=== PATIENT | male | born 1985 | race Caucasian/White ===

== ENCOUNTER 2019-08-31 13:44 | Observation (INO) | payer MEDICAID ==
--- NOTE | 2019-08-31 14:01 | ED ---
GI/ HPI - HPI Summary HPI Summary: 34 year old M presenting to [facility] with a chief complaint of abdominal distension which has slowly accumulated since 2 weeks ago. Patient reports shortness of breath and some abdominal pain. He rates the pain 4/10 in severity. Symptoms aggravated by nothing. Symptoms alleviated by nothing. The patient thinks that he may need a paracentesis, which he last had two weeks ago. Patient denies any fever, chills, erythema of eyes, sore throat, chest pain , cough, nausea/vomiting, dysuria, hematuria, myalgia, edema, rash, or dizziness. Medication list reviewed. Allergy list reviewed. - History of Current Complaint Chief Complaint: EDAbdPain Time Seen by Provider: 08/31/19 13:53 Stated Complaint: BLOATED Hx Obtained From: Patient Onset/Duration: Still Present Timing: Constant Current Severity: Moderate Pain Intensity: 4 Associated Signs and Symptoms: Positive: Negative - Erythema (eyes), sore throat , myalgia, edema, rash, Abdominal Pain, Other: - Shortness of breath. Negative : Dizziness, Nausea, Vomiting, Fever, Hematuria, Dysuria, Chills, Cough, Chest Pain Aggravating Factor(s): Nothing Alleviating Factor(s): Nothing - Allergy/Home Medications Allergies/Adverse Reactions: Allergies Allergy/AdvReac Type Severity Reaction Status Date / Time No Known Allergies Allergy Verified 08/16/19 10:40 Home Medications: Home Medications Capecitabine 500 mg TAB (NF) [Xeloda 500 mg TAB (NF)] 1,500 mg PO BID 08/15/19 [ History Confirmed 08/31/19] Furosemide TAB* [Lasix TAB*] 20 mg PO DAILY 08/15/19 [History Confirmed 08/31/19 ] Milk Thistle Seed Extract [Milk Thistle] 250 mg PO DAILY 08/15/19 [History Confirmed 08/31/19] Spironolactone (NF) [Spironolactone 50 MG (NF)] 50 mg PO DAILY 08/15/19 [ History Confirmed 08/31/19] Super Selenium Complex 1 tab PO DAILY 08/15/19 [History Confirmed 08/31/19] Vitamin D3/Vitamin K2 (Mk4) [K2 Plus D3 100-1000 Mcg-Unit] 1 tab PO DAILY [History Confirmed 08/31/19] celeCOXIB CAP* [CeleBREX CAP*] 100 mg PO BID 08/15/19 [History Confirmed ] hydrOXYzine HCL TAB* [Atarax TAB 50 MG *] 50 - 100 mg PO BEDTIME PRN 08/15/19 [ History Confirmed 08/31/19] metFORMIN* [Glucophage 500 MG TAB *] 500 mg PO BID 08/15/19 [History Confirmed 08/31/19] ursodioL [Ursodiol] 250 mg PO BID 08/15/19 [History Confirmed 08/31/19] PMH/Surg Hx/FS Hx/Imm Hx Endocrine/Hematology History: Denies: Hx Diabetes Cardiovascular History: Denies: Hx Hypertension History: Denies: Hx Renal Disease Sensory History: Denies: Hx Deafness - Cancer History Cancer Type, Location and Year: Colon - Surgical History Surgical History: None Infectious Disease History: No Infectious Disease History: Denies: Traveled Outside the [place] in Last 30 Days - Family History Known Family History: Negative: Hypertension - Social History Alcohol Use: None Substance Use Type: Reports: None Hx Tobacco Use: No Smoking Status (MU): Never Smoked Tobacco Review of Systems Negative: Fever, Chills Negative: Erythema Negative: Sore Throat Negative: Chest Pain Positive: Shortness Of Breath. Negative: Cough Positive: Abdominal Pain, Other - Abdominal distension. Negative: Vomiting, Nausea Negative: dysuria, hematuria Negative: Myalgia, Edema Negative: Rash Neurological/Mental Status: Negative - Dizziness All Other Systems Reviewed And Are Negative: Yes Physical Exam - Summary Physical Exam Summary: Constitutional: Well-developed, Well-nourished, Alert. (-) Distressed Skin: Warm, Dry HENT: Normocephalic; Atraumatic Eyes: Conjunctiva normal Neck: Musculoskeletal ROM normal neck. (-) JVD, (-) Stridor, (-) Tracheal deviation Cardio: Rhythm regular, rate normal, Heart sounds normal; Intact distal pulses; The pedal pulses are 2+ and symmetric. Radial pulses are 2+ and symmetric. (-) Murmur Pulmonary/Chest wall: Effort normal. (-) Respiratory distress, (-) Wheezes, (-) Rales, diminished breath sounds Abd: Significant abdominal ascites, (-) Guarding, (-) Rebound Musculoskeletal: (-) Edema Lymph: (-) Cervical adenopathy Neuro: Alert, Oriented x3 Psych: Mood and affect Normal Triage Information Reviewed: Yes Vital Signs On Initial Exam: Initial Vitals Temp Pulse Resp BP Pulse Ox 98.1 F 141 20 125/93 96 08/31/19 13:45 08/31/19 13:45 08/31/19 13:45 08/31/19 13:45 08/31/19 13:45 Vital Signs Reviewed: Yes Procedures - Sedation Patient Received Moderate/Deep Sedation with Procedure: No Diagnostics - Vital Signs Vital Signs Temp Pulse Resp BP Pulse Ox 08/31/19 13:45 98.1 F 141 20 125/93 96 - Laboratory Result Diagrams: 08/31/19 14:42 08/31/19 14:42 Lab Statement: Any lab studies that have been ordered have been reviewed, and results considered in the medical decision making process. - Radiology Chest x-ray Radiology Interpretation Completed By: Radiologist Summary of Radiographic Findings: 1. Hypoinflated lungs with no acute cardiopulmonary process. 2. Generalized increased opacification of the abdomen with paucity of bowel gas. ED physician has reviewed this report. - CT Abdomen/Pelvis CT CT Interpretation Completed By: Radiologist Summary of CT Findings: 1. INCREASED LARGE VOLUME ASCITES. 2. HEPATOMEGALY WITH SEVERAL METASTATIC LESIONS. 3. SIMILAR ABDOMINAL/PELVIC LYMPHADENOPATHY ABOVE. 4. BIBASILAR PULMONARY NODULARITY CONCERNING FOR METASTASES. 5. SPLENOMEGALY. 6. CHOLELITHIASIS. ED physician has reviewed this report. - EKG 14:28 Cardiac Rate: Tachycardia - 119 BPM EKG Rhythm: Sinus Tachycardia Summary of EKG Findings: No STEMI. ED physician has reviewed and interpreted this EKG. GIGU Course/Dx - Course Course Of Treatment: 34 year old M presenting to [facility] with a chief complaint of abdominal distension which has slowly accumulated since 2 weeks ago. Patient reports shortness of breath and some abdominal pain. Physical exam findings: diminished breath sounds, significant abdominal ascites. An EKG reveals sinus tachycardia rate of 119 BPM, no STEMI. CXR reveals, per radiologist, 1. Hypoinflated lungs with no acute cardiopulmonary process. 2. Generalized increased opacification of the abdomen with paucity of bowel gas. Abdomen/ Pelvis CT reveals, per radiologist, 1. INCREASED LARGE VOLUME ASCITES 2. HEPATOMEGALY WITH SEVERAL METASTATIC LESIONS. 3. SIMILAR ABDOMINAL/PELVIC LYMPHADENOPATHY ABOVE. 4. BIBASILAR PULMONARY NODULARITY CONCERNING FOR METASTASES. 5. SPLENOMEGALY. 6. CHOLELITHIASIS. Laboratory results with no significant abnormalities except for a WBC of 15.1, RBC of 3.38, Hgb of 12.4, Hct of 36, MCV of 107, MCH of 37, RDW of 26, MPV of 7.3, absolute neuts of 13.0 , absolute lymphs of 0.9, absolute monos of 1.1, Sodium of 130, carbon dioxide of 17, anion gap of 12, BUN/creatinine ratio of 29.6, glucose of 114, lactic acid of 3.1, total bilirubin of 2.50, AST of 66, alkaline phosphatase of 186, albumin of 3.1, globulin of 4.1, albumin/globulin ratio of 0.8, INR of 1.42, urine protein of 1+ A, urine urobilinogen positive A, hyaline casts present A, and C-reactive protein of 128.65. In the ED course, the patient was given Duonebs, normal saline, and Rocephin. We discussed patient care with Dr. Branch at 15:[address] Patient will be admitted. The patient is agreeable with this plan. - Diagnoses Provider Diagnoses: Spontaneous bacterial peritonitis, Malignant ascites, Sepsis - Physician Notifications Discussed Care Of Patient With: Sulma Branch Time Discussed With Above Provider: 15:37 Instructed by Provider To: Other - Discussed with Dr. Branch who requests a CT. - Critical Care Time Critical Care Time: 30-74 min - 60 minutes Critical Care Statement: Critical care time is provided exclusive of any time spent performing procedures. Discharge ED - Sign-Out/Discharge Documenting (check all that apply): Patient Departure - Discharge Plan Condition: Stable Disposition: ADMITTED TO [facility] Referrals: Ryan Nam MD [Primary Care Provider] - - Attestation Statements Document Initiated by Scribe: Yes Documenting Scribe: Nilam Hernandez Provider For Whom Scribe is Documenting (Include Credential): Jose Dailey MD Scribe Attestation: Nilam Mauricio, scribed for Jose Dailey MD on 08/31/19 at [id number]. Status of Scribe Document: Ready
[2019-08-31] MEDS ORDERED: Albuterol/Ipratropium NEB.SOL* (2.5/0.5 MG) 3 ML NEB.SOLN INH ONE (14:02)
[2019-08-31] MEDS ORDERED: NS 0.9% 1000 ML** 1,000 ML IV ONE ×2 (14:07→15:04)
[2019-08-31 14:54] LABS: ABS Basophils 0.1 10^3/ul (0-0.2); ABS Lymphocytes 0.9 10^3/ul (1.0-4.8); ABS Monocytes 1.1 10^3/ul (0-0.8); Eosinophil % 0.2 %; Hematocrit 36 % (42-52); Hemoglobin 12.4 g/dL (14.0-18.0); Lymphocyte % 5.7 %; Mean Corpuscular HGB Conc 34 g/dL (31-36); Mean Corpuscular Hemoglobin 37 pg (27-31); Mean Corpuscular Volume 107 fL (80-94); Mean Platelet Volume 7.3 fL (7.4-10.4); Nucleated Red Blood Cells % 0.1; Platelet Count 249 10^3/uL (150-450); Red Blood Count 3.38 10^6 /uL (4.18-5.48); Red Cell Distribution Width 26 % (10-15); White Blood Count 15.1 10^3/uL (3.5-10.8)
[2019-08-31 14:58] LABS: INR 1.42 (0.82-1.09)
[2019-08-31] MEDS ORDERED: Albuterol/Ipratropium NEB.SOL* (2.5/0.5 MG) 3 ML NEB.SOLN INH SCH (15:00)
[2019-08-31] MEDS ORDERED: cefTRIAXone(*) 1 GM in NS 0.9% 50 ML* 50 ML IVPB ONE (15:04)
[2019-08-31 15:10] LABS: Albumin 3.1 g/dL (3.2-5.2); Albumin/Globulin Ratio 0.8 (1-3); BUN/Creatinine Ratio 29.6 (8-20); Calcium 9.1 mg/dL (8.6-10.3); EGFR Non-African American 109.1 (>60); Globulin 4.1 g/dL (2-4); Potassium 4.4 mmol/L (3.5-5.0); Total Bilirubin 2.5 mg/dL (0.2-1.0); Total Protein 7.2 g/dL (6.4-8.9)
[2019-08-31] MEDS ORDERED: NS 0.9% 500 ML* 500 ML IV ONE (15:32)
[2019-08-31] MEDS ORDERED: Iodixanol* (CONTRAST) 320 MG/ML 100 ML SDV IV ONE (16:07)
[2019-08-31 16:25] LABS: Urine Appearance Clear; Urine Bilirubin Negative (Negative); Urine Blood Negative (Negative); Urine Color Amber; Urine Glucose Negative (Negative); Urine Ketones Negative (Negative); Urine Nitrite Negative (Negative); Urine Protein 1+(30 mg/dL) (Negative); Urine Specific Gravity 1.024 (1.010-1.030); Urine Urobilinogen Positive (Negative)
[2019-08-31 16:30] LABS: C Reactive Protein 128.65 mg/L (<8.01)
[2019-08-31 16:43] LABS: Urine Bacteria Absent (Absent); Urine Red Blood Cell Trace(0-2/hpf) (Absent); Urine White Blood Cell Absent (Absent)
[2019-08-31 17:22] LABS: Body Fluid Source Peritonial Fluid
[2019-08-31 18:24] LABS: Body Fluid Mono 80 %; Body Fluid Other Cells 2
[2019-08-31] MEDS ORDERED: hydrOXYzine HCL TAB* 50 MG PO PRN (19:25)
[2019-08-31] MEDS: URSODIOL 250 MG PO SCH (21:09)
--- NOTE | 2019-08-31 21:09 | HP ---
HISTORY AND PHYSICAL: DATE OF ADMISSION: 08/31/19 ATTENDING PHYSICIAN: Dr. Dee Dee Kimble* (dictated by Alexia Chu, MATHEW). PRIMARY CARE DOCTOR: Dr. Ryan Nam. REASON FOR ADMISSION: Abdominal distention, shortness of breath, and fatigue. HISTORY OF PRESENT ILLNESS: Mr. Ca is a 34-year-old male with a past medical history significant for colon cancer with metastatic disease to the liver, who came here from [facility] from [place] approximately 5 weeks ago to live with his girlfriend's father. The patient reports that he is on chemo 2 weeks on, 1 week off. He reports that this is his off week. He reports that he has tried experimental treatments in [place] as well. Reports that he is currently taking Chemo to maintain the lesions in his abdomen. He reports that approximately 3 weeks ago, he started having abdominal distention. Two weeks ago, he had a paracentesis and had 4 L drained. He reports that his abdomen was more distended today causing him to be uncomfortable with abdominal tightness, mild pain, causing shortness of breath, so he presented to the emergency room for further evaluation. While in the emergency room, the patient had a routine lab work. He was found to have mildly elevated white count of 15.1; a lactic acid of 3.1, repeat was 2.4; elevated bilirubin 2.50. AST was 66, ALT was 24, alkaline phosphatase was 186, C- reactive protein was 128.65. He had a urine that showed 1+ protein. Urobilinogen was positive and casts were present, otherwise was negative. He had a paracentesis which showed wbc's were 140, rbc's 608, total cell count was 100, yellow and clear. Due to the patient's abdominal distention, Hospital Medicine was asked to see and evaluate him for admission. PAST MEDICAL HISTORY: Significant for metastatic colon cancer. PAST SURGICAL HISTORY: None. HOME MEDICATIONS: Include: 1. Ursodiol 250 mg p.o. b.i.d. 2. Hydroxyzine 50 to 100 mg p.o. at bedtime. 3. Celebrex 100 mg p.o. b.i.d. 4. Vitamin D3 and vitamin K2 one tab p.o. daily. 5. Super selenium complex 1 tab p.o. daily. 6. spironolactone 50 mg p.o. daily. 7. Milk thistle seed 250 mg p.o. daily. 8. Furosemide 20 mg p.o. daily. 9. Capecitabine 1500 mg p.o. b.i.d. 2 weeks on, 1 week off. ALLERGIES: No known drug allergies. FAMILY HISTORY: Maternal grandfather with a history of an [place]. No reported history of diabetes or cancer. SOCIAL HISTORY: Denies any tobacco, alcohol, or illicit drug use for over a year. He lives with his girlfriend. Surrogate decision maker in the event he is unable to make his own decisions is his girlfriend Pastora Ross. REVIEW OF SYSTEMS: He denies any fevers, chills, unintended weight loss. He denies any chest pain. He denies any cough, hemoptysis. He does report some shortness of breath that has resolved after his paracentesis. He denies any nausea, vomiting, diarrhea. He does complain of abdominal distention and mild right mid abdominal pain. Denies any gross hematuria, dysuria, focal weakness, sensory loss, visual complaints. Denies any dysphagia, arthralgias, myalgias, rashes, lesions, open sores. He denies any lightheadedness or dizziness. He does complain of fatigue. PHYSICAL EXAMINATION GENERAL: Mr. Ca is a 34-year-old male who is pale, resting on the stretcher in the emergency room. VITAL SIGNS: Blood pressure 125/89, heart rate 106, respirations were 18 to 22 , O2 saturation was 99% on room air, temperature was 98.1. HEENT: Head is atraumatic, normocephalic. Eyes: EOMs are intact. Sclerae anicteric. Conjunctivae are pale. Mucous membranes are moist. NECK: Supple. LUNGS: Clear to auscultation bilaterally. No wheezes, rales, or rhonchi. CARDIAC: S1, S2. Tachycardic. No murmurs, rubs, or gallops. ABDOMEN: Soft. Does have mild tenderness to his right abdomen. Bowel sounds are active x4. He does have a Band-Aid on his paracentesis puncture site. There is no drainage. NEUROLOGIC: He is awake, alert, oriented x3. Speech is clear. Thought process is intact. There are no gross focal deficits. SKIN: Intact. DIAGNOSTIC STUDIES/LAB DATA: WBCs are 15.1, RBCs 3.38, hemoglobin 12.4, hematocrit is 36, platelet count is 249. INR 1.42. Sodium 130, potassium 4.0, chloride 101, carbon dioxide was 17, anion gap of 12, glucose was 114, lactic acid was 3.1 and repeat was 2.4. Total bilirubin 2.50, AST was 66, ALT was 24, alkaline phosphatase was 186. C-reactive protein was 128.65. Urine was within normal limits with the exception of urine protein with 1+ urine, urobilinogen was positive and hyaline casts were present. He had peritoneal fluid, volume was 60, color was yellow, appearance was clear, wbc's were 140, rbc's 608, total cell count was 100, neutrophils were 9, lymphocytes were 11, monocytes were 80, and other cells were 2. He had a chest x-ray, radiologist's impression: 1. Hypoinflated lungs with no acute cardiopulmonary process. 2. Generalized increased opacification of the abdomen with patchy bowel gas. He had electrocardiogram which showed sinus tachycardia at a rate of 119. He had a CT of the abdomen and pelvis, increased large volume of ascites, hepatomegaly with several metastatic lesions, similar abdominal and pelvis lymphadenopathy as above, bibasilar pulmonary nodularity concerning for metastatic disease, splenomegaly, and cholelithiasis. He had a paracentesis and drained 8 L of fluid. ASSESSMENT AND PLAN: Mr. Ca is a 34-year-old male with a past medical history of metastatic colon cancer, who presented to the emergency room with abdominal distention, needing paracentesis. He will be admitted under observation for: 1. Abdominal pain. I suspect his abdominal pain is related to large volume of ascites. The patient did undergo a paracentesis in the emergency room where they drained 8 L of fluid. He did have fluid sent for cell count, which showed wbc's of 140. At this time, the patient does not appear to have bacterial peritonitis. He is afebrile. I suspect that the recurrent ascites is from his metastatic colon cancer with metastatic disease to the liver. The patient at this time has received 2500 cc of normal saline in the emergency room. I am going to hold off on further fluid bolusing. I will give him normal saline at 100 cc an hour x1 more liter overnight. 2. Leukocytosis. The patient does have leukocytosis and elevated CRP. He has no clear source of infection at this time. He did receive Rocephin 1 g in the emergency room. I am going to hold off on further antibiotics at this time as the patient does not have a clear source of infection. His chest x-ray did show no pneumonia. His urine is without any signs of urinary tract infection and his peritoneal fluid did not return high levels of wbc's. We will continue to monitor him for signs of infection. He does have blood cultures that are currently pending and a urine culture that is currently pending. Should he develop a fever we will resume broad coverage antibiotics at that time. 3. Metastatic colon cancer. The patient is not established with Oncology here in [place]. He has an oncologist in [place]. He moved here approximately 5 weeks ago and it is unclear of his plan whether or not he will be returning to [place] or staying in [place]. I would recommend a consultation to Oncology for further recommendations. 4. Hyponatremia. The patient did have hyponatremia on his initial lab work. appears to be baseline since 08/15/19. We will continue to monitor and again, the patient received 2500 cc of normal saline in the emergency room. I will continue him on Normal saline at 100 cc/hr overnight. 5. Elevated lactic acid. The patient does have an elevated lactic acid. I do not believe that this is related to sepsis or underlying infection as the patient has no clear source of underlying infection. 6. Tachycardia. The patient is tachycardic, he appears to have chronic tachycardia when previous admissions were reviewed, susect some of this could be a component dehydration. 7. FEN: He can have a regular diet. 8. Code status: He is a full code. 9. DVT prophylaxis: I will place him on SCDs. ALEXIA ADRIANA, PRE [employer] TE[employer]ER [id number]/[facility] #: [id number] AMISH
[2019-08-31] MEDS ORDERED: NS 0.9% 1000 ML** 1,000 ML IV SCH (21:45)
[2019-09-01 07:37] LABS: ABS Basophils 0.1 10^3/ul (0-0.2); ABS Lymphocytes 1.2 10^3/ul (1.0-4.8); ABS Monocytes 1.2 10^3/ul (0-0.8); ABS Neutrophils 12.4 10^3/ul (1.5-7.7); Eosinophil % 0.3 %; Hematocrit 36 % (42-52); Hemoglobin 12.3 g/dL (14.0-18.0); Mean Corpuscular HGB Conc 35 g/dL (31-36); Mean Corpuscular Hemoglobin 37 pg (27-31); Mean Corpuscular Volume 107 fL (80-94); Mean Platelet Volume 7.7 fL (7.4-10.4); Nucleated Red Blood Cells % 0.1; Platelet Count 219 10^3/uL (150-450); Red Blood Count 3.34 10^6 /uL (4.18-5.48); Red Cell Distribution Width 26 % (10-15); White Blood Count 14.9 10^3/uL (3.5-10.8)
[2019-09-01 07:40] LABS: INR 1.47 (0.82-1.09)
[2019-09-01 07:48] LABS: Calcium 8.2 mg/dL (8.6-10.3); EGFR African American 146.5 (>60); EGFR Non-African American 121.1 (>60); Potassium 4.6 mmol/L (3.5-5.0)
[2019-09-01 08:01] VITALS: BP 114/83
[2019-09-01] MEDS: URSODIOL 250 MG PO SCH (08:12)
--- NOTE | 2019-09-01 08:59 | PN ---
Subjective Date of Service: 09/01/19 Interval History: Pt was dx with advanced metastatic colon ca in . He saw an oncologist in [facility] who told him that there are not good options for cure and pt decided not to follow with oncology since then . He had been traveling to [place] and back ( in 2018 was there 3 times) and receiving infusions of further unknown to pt chemo agent. He was started on Xeloda n 05/30 and his PCP in [facility] is prescribing it under the direction of the practitioners from [facility] Objective Active Medications: Furosemide (Lasix Tab*) 20 mg PO DAILY [facility] Last Admin: 09/01/19 08:12 Dose: 20 mg Hydroxyzine HCl (Atarax Tab*) 50 mg PO BEDTIME PRN PRN Reason: ANXIETY Last Admin: 08/31/19 23:54 Dose: 50 mg Spironolactone (Aldactone Tab*) 50 mg PO DAILY [facility] Last Admin: 09/01/19 08:12 Dose: 50 mg Ursodiol (Catherine 250(Nf)) 250 mg PO BID [facility] Last Admin: 09/01/19 08:12 Dose: Not Given Vital Signs - 8 hr 09/01/19 09/01/19 03:15 07:15 Temperature 97.9 F 97.9 F Pulse Rate 110 112 Respiratory 18 18 Rate Blood Pressure 104/76 114/83 (mmHg) O2 Sat by Pulse 98 99 Oximetry Oxygen Devices in Use Now: None Appearance: 34 yo M in n[place], AAOx3, pt appears very emanciated Eyes: No Scleral Icterus, PERRLA Ears/Nose/Mouth/Throat: Mucous Membranes Moist, - Neck: NL Appearance and Movements; NL JVP, Trachea Midline Respiratory: Symmetrical Chest Expansion and Respiratory Effort, - - scant binbasiliar crackles Cardiovascular: - - tachy Abdominal: - - dense ascites, nontender , BS+ Extremities: No Edema, - Neurological: Alert and Oriented x 3, NL Muscle Strength and Tone Result Diagrams: 09/01/19 06:23 09/01/19 06:23 Microbiology and Other Data: Microbiology 08/31/19 16:45 Gram Stain - Final Body Fluid - Peritoneal Assess/Plan/Problems-Billing Assessment: 34 yo M with h/o metastatic colon cancer and progressive liver failure due to mets presented with SOB and significant ascites. had 8 L of fluid obtained from paracentesis on 08/31/19 please see the reminder of pt's history in d/c summary dictated
[2019-09-01] MEDS ORDERED: Spironolactone TAB* 25 MG PO SCH (09:00)
[2019-09-01] MEDS ORDERED: Furosemide TAB* 20 MG PO SCH (09:00)
--- NOTE | 2019-09-01 09:16 | CONSULT ---
Consultation - Reason for Consultation Reason for Consultation: Metastatic Colorectal cancer Ordering Provider: Sulma Branch Chief Complaint: Abdominal pain and distension History of Present Illness: Mr Ca is a 34 year old gentleman originally from [place], currently residing in [facility] . He has recently travelled to [place] to be closer to family. 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 He tells me the diagnosis was made after biopsy of a supraclavicular node. He was seen at [facility] and every 2 week chemothertapy was recommended. He decided not to pursue this and travelled to [facility] to be seen at the [facility]. He was treated primarily by DR Lopez. The [facility] has been managing his care since returning back to the [facility]. He initiated Xeloda 2 weeks on 1 week off in May of 2019. He is now admitted with recurrent ascites, abdominal distension and has undergone a paracentesis of 8 liters, cultures and gram stain negative. WBC 14.8 Hg 12 platelets 219 creatinine 0.74 bilirubim 2.5 AST 65 ALT 261, alk phos 186 CT abdomen bilateral basilar pulmonary nodules, enlarged liver with hepatic metastases, RP nodes and splenomegaly Allergies/Medications Allergies/Adverse Reactions: Allergies Allergy/AdvReac Type Severity Reaction Status Date / Time No Known Allergies Allergy Verified 08/16/19 10:40 History - Past Medical History Hx Arthritis: No Hx Blood Dyscrasias: No Hx Cancer: Yes Hx Cardiac Disorders: No Hx Circulatory Problems: No Hx Diabetes: No Hx Hypercholesterolemia: No Hx Hypertension: No Hx Musculoskeletal Deformity: No Surgical History: None Hx Endocrine Problem: No Hx Bone Density Problem: No - Family History Hx Family Cancer: No Hx Family Cerebrovascular Accident: No Hx Family Cardiac Disorders: No Hx Family Diabetes: No Hx Family Hypertension: No - Social History Hx Alcohol Use: No Hx Tobacco Use: No Hx Substance Use: No Review of Systems - Review of Systems Constitutional Symptoms: Positive: Weight Loss Dermatology: Positive: Normal HEENT: Positive: Normal Eyes: Positive: Normal Thyroid: Positive: Normal Pulmonary: Positive: Shortness of Breath Cardiology: Positive: Normal Gastroenterology: Positive: Abdominal Pain Genital - Urinary: Positive: Normal Endocrinology: Positive: Normal Neurology: Positive: Normal Psychiatry: Positive: Normal Physical Exam - Physical Exam Physical Examination: Alert and conversant meck supple Cachectic with temporal wasting Abdomen distended NOT tense, ascites present, minimal tenderness to palpation Extremities with muscle wasting Neuro grossly non focal Vital Signs - 8 hr 09/01/19 09/01/19 03:15 07:15 Temperature 97.9 F 97.9 F Pulse Rate 110 112 Respiratory 18 18 Rate Blood Pressure 104/76 114/83 (mmHg) O2 Sat by Pulse 98 99 Oximetry Laboratory Results - last 24 hr 08/31/19 08/31/19 08/31/19 14:42 14:42 14:42 WBC 15.1 H RBC 3.38 L Hgb 12.4 L Hct 36 L MCV 107 H MCH 37 H MCHC 34 RDW 26 H Plt Count 249 MPV 7.3 L Neut % (Auto) 86.3 Lymph % (Auto) 5.7 [place] % (Auto) 7.2 Eos % (Auto) 0.2 Baso % (Auto) 0.6 Absolute Neuts (auto) 13.0 H Absolute Lymphs (auto) 0.9 L Absolute Monos (auto) 1.1 H Absolute Eos (auto) 0.0 Absolute Basos (auto) 0.1 Absolute Nucleated RBC 0.0 Nucleated RBC % 0.1 INR (Anticoag Therapy) 1.42 H Sodium 130 L Potassium 4.4 Chloride 101 Carbon Dioxide 17 L Anion Gap 12 H BUN 24 Creatinine 0.81 Est GFR ( Amer) 132.0 Est GFR (Non-Af Amer) 109.1 BUN/Creatinine Ratio 29.6 H Glucose 114 H Lactic Acid Calcium 9.1 Total Bilirubin 2.50 H AST 66 H ALT 24 Alkaline Phosphatase 186 H C-Reactive Protein 128.65 H Total Protein 7.2 Albumin 3.1 L Globulin 4.1 H Albumin/Globulin Ratio 0.8 L Urine Color Urine Appearance Urine pH Ur Specific [place] Urine Protein Urine Ketones Urine Blood Urine Nitrate Urine Bilirubin Urine Urobilinogen Ur Leukocyte Esterase Urine WBC (Auto) Urine RBC (Auto) Urine Bacteria Hyaline Casts Urine Glucose Urine Ascorbic Acid Fluid Source Fluid Volume Fluid Color Fluid Appearance Fluid WBC Fluid RBC Fluid Tot Cell Count Fluid Neutrophils Fluid Lymphocytes Fluid Monocytes Fluid Other Cells 08/31/19 08/31/19 08/31/19 14:42 16:17 16:45 WBC RBC Hgb Hct MCV MCH MCHC RDW Plt Count MPV Neut % (Auto) Lymph % (Auto) [place] % (Auto) Eos % (Auto) Baso % (Auto) Absolute Neuts (auto) Absolute Lymphs (auto) Absolute Monos (auto) Absolute Eos (auto) Absolute Basos (auto) Absolute Nucleated RBC Nucleated RBC % INR (Anticoag Therapy) Sodium Potassium Chloride Carbon Dioxide Anion Gap BUN Creatinine Est GFR ( Amer) Est GFR (Non-Af Amer) BUN/Creatinine Ratio Glucose Lactic Acid 3.1 H* Calcium Total Bilirubin AST ALT Alkaline Phosphatase C-Reactive Protein Total Protein Albumin Globulin Albumin/Globulin Ratio Urine Color Jannie Urine Appearance Clear Urine pH 5.0 Ur Specific [place] 1.024 Urine Protein 1+(30 mg/dl) A Urine Ketones Negative Urine Blood Negative Urine Nitrate Negative Urine Bilirubin Negative Urine Urobilinogen Positive A Ur Leukocyte Esterase Negative Urine WBC (Auto) Absent Urine RBC (Auto) Trace(0-2/hpf) Urine Bacteria Absent Hyaline Casts Present A Urine Glucose Negative Urine Ascorbic Acid * A Fluid Source Peritonial fluid Fluid Volume 60 Fluid Color Yellow Fluid Appearance Clear Fluid WBC 140 Fluid RBC 608 Fluid Tot Cell Count 100 Fluid Neutrophils 9 Fluid Lymphocytes 11 Fluid Monocytes 80 Fluid Other Cells 2 08/31/19 09/01/19 09/01/19 17:50 06:23 06:23 WBC 14.9 H RBC 3.34 L Hgb 12.3 L Hct 36 L MCV 107 H MCH 37 H MCHC 35 RDW 26 H Plt Count 219 MPV 7.7 Neut % (Auto) 83.4 Lymph % (Auto) 8.0 [place] % (Auto) 7.8 Eos % (Auto) 0.3 Baso % (Auto) 0.5 Absolute Neuts (auto) 12.4 H Absolute Lymphs (auto) 1.2 Absolute Monos (auto) 1.2 H Absolute Eos (auto) 0.0 Absolute Basos (auto) 0.1 Absolute Nucleated RBC 0.0 Nucleated RBC % 0.1 INR (Anticoag Therapy) Sodium 131 L Potassium 4.6 Chloride 104 Carbon Dioxide 17 L Anion Gap 10 BUN 20 Creatinine 0.74 Est GFR ( Amer) 146.5 Est GFR (Non-Af Amer) 121.1 BUN/Creatinine Ratio 27.0 H Glucose 92 Lactic Acid 2.4 H* Calcium 8.2 L Total Bilirubin AST ALT Alkaline Phosphatase C-Reactive Protein Total Protein Albumin Globulin Albumin/Globulin Ratio Urine Color Urine Appearance Urine pH Ur Specific [place] Urine Protein Urine Ketones Urine Blood Urine Nitrate Urine Bilirubin Urine Urobilinogen Ur Leukocyte Esterase Urine WBC (Auto) Urine RBC (Auto) Urine Bacteria Hyaline Casts Urine Glucose Urine Ascorbic Acid Fluid Source Fluid Volume Fluid Color Fluid Appearance Fluid WBC Fluid RBC Fluid Tot Cell Count Fluid Neutrophils Fluid Lymphocytes Fluid Monocytes Fluid Other Cells 09/01/19 06:23 WBC RBC Hgb Hct MCV MCH MCHC RDW Plt Count MPV Neut % (Auto) Lymph % (Auto) [place] % (Auto) Eos % (Auto) Baso % (Auto) Absolute Neuts (auto) Absolute Lymphs (auto) Absolute Monos (auto) Absolute Eos (auto) Absolute Basos (auto) Absolute Nucleated RBC Nucleated RBC % INR (Anticoag Therapy) 1.47 H Sodium Potassium Chloride Carbon Dioxide Anion Gap BUN Creatinine Est GFR ( Amer) Est GFR (Non-Af Amer) BUN/Creatinine Ratio Glucose Lactic Acid Calcium Total Bilirubin AST ALT Alkaline Phosphatase C-Reactive Protein Total Protein Albumin Globulin Albumin/Globulin Ratio Urine Color Urine Appearance Urine pH Ur Specific [place] Urine Protein Urine Ketones Urine Blood Urine Nitrate Urine Bilirubin Urine Urobilinogen Ur Leukocyte Esterase Urine WBC (Auto) Urine RBC (Auto) Urine Bacteria Hyaline Casts Urine Glucose Urine Ascorbic Acid Fluid Source Fluid Volume Fluid Color Fluid Appearance Fluid WBC Fluid RBC Fluid Tot Cell Count Fluid Neutrophils Fluid Lymphocytes Fluid Monocytes Fluid Other Cells Intake and Output Last 24 Hours 08/30/19 08/31/19 09/01/19 09/02/19 06:59 06:59 06:59 06:59 Intake Total 960 120 Output Total 200 Balance 760 120 Weight 152 lb 4.8 oz Intake: Oral 960 120 Output: Urine 200 Other: # Voids 2 Furosemide (Lasix Tab*) 20 mg PO DAILY [facility] Last Admin: 09/01/19 08:12 Dose: 20 mg Hydroxyzine HCl (Atarax Tab*) 50 mg PO BEDTIME PRN PRN Reason: ANXIETY Last Admin: 08/31/19 23:54 Dose: 50 mg Spironolactone (Aldactone Tab*) 50 mg PO DAILY [facility] Last Admin: 09/01/19 08:12 Dose: 50 mg Ursodiol (Catherine 250(Nf)) 250 mg PO BID [facility] Last Admin: 09/01/19 08:12 Dose: Not Given Results - Lab Results Lab Results: 08/31/19 08/31/19 08/31/19 14:42 14:42 14:42 WBC 15.1 H RBC 3.38 L Hgb 12.4 L Hct 36 L MCV 107 H MCH 37 H MCHC 34 RDW 26 H Plt Count 249 MPV 7.3 L Neut % (Auto) 86.3 Lymph % (Auto) 5.7 [place] % (Auto) 7.2 Eos % (Auto) 0.2 Baso % (Auto) 0.6 Absolute Neuts (auto) 13.0 H Absolute Lymphs (auto) 0.9 L Absolute Monos (auto) 1.1 H Absolute Eos (auto) 0.0 Absolute Basos (auto) 0.1 Absolute Nucleated RBC 0.0 Nucleated RBC % 0.1 INR (Anticoag Therapy) 1.42 H Sodium 130 L Potassium 4.4 Chloride 101 Carbon Dioxide 17 L Anion Gap 12 H BUN 24 Creatinine 0.81 Est GFR ( Amer) 132.0 Est GFR (Non-Af Amer) 109.1 BUN/Creatinine Ratio 29.6 H Glucose 114 H Lactic Acid Calcium 9.1 Total Bilirubin 2.50 H AST 66 H ALT 24 Alkaline Phosphatase 186 H C-Reactive Protein 128.65 H Total Protein 7.2 Albumin 3.1 L Globulin 4.1 H Albumin/Globulin Ratio 0.8 L Urine Color Urine Appearance Urine pH Ur Specific [place] Urine Protein Urine Ketones Urine Blood Urine Nitrate Urine Bilirubin Urine Urobilinogen Ur Leukocyte Esterase Urine WBC (Auto) Urine RBC (Auto) Urine Bacteria Hyaline Casts Urine Glucose Urine Ascorbic Acid Fluid Source Fluid Volume Fluid Color Fluid Appearance Fluid WBC Fluid RBC Fluid Tot Cell Count Fluid Neutrophils Fluid Lymphocytes Fluid Monocytes Fluid Other Cells 08/31/19 08/31/19 08/31/19 14:42 16:17 16:45 WBC RBC Hgb Hct MCV MCH MCHC RDW Plt Count MPV Neut % (Auto) Lymph % (Auto) [place] % (Auto) Eos % (Auto) Baso % (Auto) Absolute Neuts (auto) Absolute Lymphs (auto) Absolute Monos (auto) Absolute Eos (auto) Absolute Basos (auto) Absolute Nucleated RBC Nucleated RBC % INR (Anticoag Therapy) Sodium Potassium Chloride Carbon Dioxide Anion Gap BUN Creatinine Est GFR ( Amer) Est GFR (Non-Af Amer) BUN/Creatinine Ratio Glucose Lactic Acid 3.1 H* Calcium Total Bilirubin AST ALT Alkaline Phosphatase C-Reactive Protein Total Protein Albumin Globulin Albumin/Globulin Ratio Urine Color [place]annie Urine Appearance Clear Urine pH 5.0 Ur Specific [place] 1.024 Urine Protein 1+(30 mg/dl) A Urine Ketones Negative Urine Blood Negative Urine Nitrate Negative Urine Bilirubin Negative Urine Urobilinogen Positive A Ur Leukocyte Esterase Negative Urine WBC (Auto) Absent Urine RBC (Auto) Trace(0-2/hpf) Urine Bacteria Absent Hyaline Casts Present A Urine Glucose Negative Urine Ascorbic Acid * A Fluid Source Peritonial fluid Fluid Volume 60 Fluid Color Yellow Fluid Appearance Clear Fluid WBC 140 Fluid RBC 608 Fluid Tot Cell Count 100 Fluid Neutrophils 9 Fluid Lymphocytes 11 Fluid Monocytes 80 Fluid Other Cells 2 08/31/19 09/01/19 09/01/19 17:50 06:23 06:23 WBC 14.9 H RBC 3.34 L Hgb 12.3 L Hct 36 L MCV 107 H MCH 37 H MCHC 35 RDW 26 H Plt Count 219 MPV 7.7 Neut % (Auto) 83.4 Lymph % (Auto) 8.0 [place] % (Auto) 7.8 Eos % (Auto) 0.3 Baso % (Auto) 0.5 Absolute Neuts (auto) 12.4 H Absolute Lymphs (auto) 1.2 Absolute Monos (auto) 1.2 H Absolute Eos (auto) 0.0 Absolute Basos (auto) 0.1 Absolute Nucleated RBC 0.0 Nucleated RBC % 0.1 INR (Anticoag Therapy) Sodium 131 L Potassium 4.6 Chloride 104 Carbon Dioxide 17 L Anion Gap 10 BUN 20 Creatinine 0.74 Est GFR ( Amer) 146.5 Est GFR (Non-Af Amer) 121.1 BUN/Creatinine Ratio 27.0 H Glucose 92 Lactic Acid 2.4 H* Calcium 8.2 L Total Bilirubin AST ALT Alkaline Phosphatase C-Reactive Protein Total Protein Albumin Globulin Albumin/Globulin Ratio Urine Color Urine Appearance Urine pH Ur Specific [place] Urine Protein Urine Ketones Urine Blood Urine Nitrate Urine Bilirubin Urine Urobilinogen Ur Leukocyte Esterase Urine WBC (Auto) Urine RBC (Auto) Urine Bacteria Hyaline Casts Urine Glucose Urine Ascorbic Acid Fluid Source Fluid Volume Fluid Color Fluid Appearance Fluid WBC Fluid RBC Fluid Tot Cell Count Fluid Neutrophils Fluid Lymphocytes Fluid Monocytes Fluid Other Cells 09/01/19 06:23 WBC RBC Hgb Hct MCV MCH MCHC RDW Plt Count MPV Neut % (Auto) Lymph % (Auto) [place] % (Auto) Eos % (Auto) Baso % (Auto) Absolute Neuts (auto) Absolute Lymphs (auto) Absolute Monos (auto) Absolute Eos (auto) Absolute Basos (auto) Absolute Nucleated RBC Nucleated RBC % INR (Anticoag Therapy) 1.47 H Sodium Potassium Chloride Carbon Dioxide Anion Gap BUN Creatinine Est GFR ( Amer) Est GFR (Non-Af Amer) BUN/Creatinine Ratio Glucose Lactic Acid Calcium Total Bilirubin AST ALT Alkaline Phosphatase C-Reactive Protein Total Protein Albumin Globulin Albumin/Globulin Ratio Urine Color Urine Appearance Urine pH Ur Specific [place] Urine Protein Urine Ketones Urine Blood Urine Nitrate Urine Bilirubin Urine Urobilinogen Ur Leukocyte Esterase Urine WBC (Auto) Urine RBC (Auto) Urine Bacteria Hyaline Casts Urine Glucose Urine Ascorbic Acid Fluid Source Fluid Volume Fluid Color Fluid Appearance Fluid WBC Fluid RBC Fluid Tot Cell Count Fluid Neutrophils Fluid Lymphocytes Fluid Monocytes Fluid Other Cells Assessment and Plan Impression: Metastatic colorectal cancer with hepatic, andrew and likely pulmonary metastases. Details unclear including molecular studies Alternative therapy in [place] with most recent treatment Xeloda Recurrent ascites secondary to above Malnutrition and generalized deconditioning Nutrition: Malnutrition Diagnosis/Plan: Reviewed clinical presentation and recommendations in detail with patient He has required large volume paracentesis secondary to recurrent ascites. He may benefit from future IR placement of a peritoneal catheter for intermittent drainage Will request records from [facility] and [facility] He currently continues on Xeloda under the direction of his physicians in [place]. In all likelihood there has been progession on Xeloda ( initiated 2019 per patient report) given recurrent ascites . Patient likely to be discharged this afternoon, therefore will arrange outpatient Oncology follow up. He has been adverse of additional chemotherapy per his discussions with his [facility] oncologists, however will continue discussions
--- NOTE | 2019-09-01 14:20 | DS ---
CC: Dr. Ryan Nam; Dr. Cal Lewis* DISCHARGE SUMMARY: DATE OF ADMISSION: 08/31/19 DATE OF DISCHARGE: 09/01/19 PRIMARY CARE PROVIDER: Dr. Ryan Nam from [place]. DISPOSITION ON DISCHARGE: Home. CONDITION ON DISCHARGE: Stable. DISCHARGE DIAGNOSIS: End-stage metastatic to liver and lung colon cancer with liver failure and recurrent ascites, status post paracentesis performed in the ER with 8 L of fluid obtained. MEDICATIONS AT DISCHARGE: Unchanged from admission and include: 1. Xeloda 1500 mg b.i.d. 2. Celebrex 100 mg b.i.d. p.r.n. 3. Lasix 20 mg daily. 4. Hydroxyzine 50 to 100 mg q.h.s. p.r.n. 5. Milk thistle extracts daily. 6. Aldactone 50 mg daily. 7. Selenium complex 1 tablet daily. 8. Ursodiol 250 mg b.i.d. 9. Vitamin D3 supplement 1 tablet daily. CONSULTATIONS DURING THE HOSPITAL STAY: Included Dr. Lewis from Oncology. PROCEDURES PERFORMED: Included paracentesis with ultrasound guidance performed in the ED that obtained a total of 8 L of peritoneal fluid. LABORATORY DATA AND STUDIES PERFORMED DURING THE HOSPITAL STAY: Included on ; white blood cell count of 14.9, hemoglobin 12.3, hematocrit of 36, MCV of 107, and platelets of 219. Sodium was 131, potassium 4.6, chloride 104, carbon dioxide 17, BUN 20, creatinine of 0.74. Lactic acid of 2.4 on 08/31/19 in the afternoon. Urinalysis. Positive for urobilinogen and hyaline casts. Peritoneal fluid analysis showed clear fluid with WBCs of 140, RBCs of 608, total lymphocytes 11, monocytes 80%. The cytology report showed no evidence of malignancy and/or acute inflammatory response, that was the pathologist comment. CT of the abdomen and pelvis obtained at admission, impression: "Increased large volume ascites. Hepatomegaly with several metastatic lesions. Similar abdominopelvic lymphadenopathy as above with comparing to a CT study from . Bibasilar pulmonary nodularity concerning for metastasis. Splenomegaly. Cholelithiasis." HOSPITAL COURSE: Rafa Ca is a 34-year-old male with history of metastatic colon cancer and liver failure. The patient was diagnosed of his colon cancer in November of 2018. At that point when he saw an oncologist in [facility], he was told that there is no treatment that would be curative. At that point, he decided not to follow up with his oncologist and seek alternative treatment. He went 3 times to [facility] in between December and April of 2019. Each time , he received an IV dose of, as he describes, chemotherapy. He stated that from May of 2019 he had been on Xeloda primary care provider who is prescribing it to him from [facility]. Apparently, primary care provider had discussed the case with the practitioners in [facility] that recommended Xeloda. The patient stated that in the past he was told that his lesions are improving. His ascites developed approximately 4 weeks ago. He had an outpatient paracentesis performed on 08/16/[address] Hendrix that was therapeutic. Despite that, his fluid continued to regather, and on 08/31/19, he presented with very dense ascites and pain due to ascites as well as shortness of breath due to ascites. He received a large volume paracentesis. He was tachycardic and needed to have intravenous fluid resuscitation. He was placed on overnight observation. Initially, there was a question of spontaneous bacterial peritonitis and he did receive 1 dose of ceftriaxone in the emergency department. The decision was made not to continue it when the patient was observed overnight at our hospital due to no indication of infection at this point. The patient was placed on overnight observation. In the morning when I visited him, we talked briefly about possibility of Palliative Care/Hospice consult, but the patient was not ready for it yet. He did agree to see Dr. Lewis from Oncology in consultation. Dr. Lewis saw the patient and will follow up with the patient as outpatient. It is possible that the patient can have paracentesis as outpatient at oncology office. He also would be a good candidate for peritoneal drain catheter placement that can be also arranged as outpatient. At discharge, the patient was recommended to follow up with his primary care provider in [address] Lewis's office will call the patient with a scheduled appointment for next week. PHYSICAL EXAMINATION AT THE TIME OF DISCHARGE: Please see daily progress notes. Please note that this is a short summary of the patient's hospitalization. Please refer to further medical records for details. TIME SPENT: Approximately, 45 minutes was spent on the patient's discharge. [id number]/CPS #: [id number] MTDD
[2019-09-02 15:37] LABS: Lactate Dehydrogenase, BF 344 U/L
== END 2019-09-01 11:45 | disposition home or self-care (01) ==
LOC: ED 13:44 → MEDTELE 19:21
PROVIDERS: ADMIT Internal Medicine; ATTEND Internal Medicine
DX: C22.8 Malignant neoplasm of liver, primary, unspecified as to type (principal); C78.00 Secondary malignant neoplasm of unspecified lung; C78.5 Secondary malignant neoplasm of large intestine and rectum; R10.9 Unspecified abdominal pain; R53.83 Other fatigue; R06.02 Shortness of breath; R14.0 Abdominal distension (gaseous); D72.829 Elevated white blood cell count, unspecified; E87.1 Hypo-osmolality and hyponatremia; R74.0 Nonspecific elevation of levels of transaminase and lactic acid dehydrogenase [LDH]; R00.0 Tachycardia, unspecified; Z92.21 Personal history of antineoplastic chemotherapy; Z79.899 Other long term (current) drug therapy
CPT/HCPCS: 36415; 49083; 71045; 74177; 80048; 80053; 81003; 81015; 82945; 83605; 83615; 84157; 85025; 85610; 86140; 87040; 87205; 89051; 93005; 96361; 96365; 99285; A9270-GY; G0378; J0696; Q9967

== ENCOUNTER 2019-09-04 11:58 | Inpatient (IN) | payer MEDICAID ==
[2019-09-04 13:29] LABS: Hematocrit 37 % (42-52); Mean Corpuscular HGB Conc 35 g/dL (31-36); Mean Corpuscular Hemoglobin 37 pg (27-31); Mean Corpuscular Volume 106 fL (80-94); Mean Platelet Volume 7.9 fL (7.4-10.4); Platelet Count 274 10^3/uL (150-450); Red Blood Count 3.52 10^6 /uL (4.18-5.48); Red Cell Distribution Width 26 % (10-15); White Blood Count 13.1 10^3/uL (3.5-10.8)
[2019-09-04 13:43] LABS: ALT 37 U/L (7-52); Albumin 2.9 g/dL (3.2-5.2); Albumin/Globulin Ratio 0.7 (1-3); Alkaline Phosphatase 233 U/L (34-104); BUN/Creatinine Ratio 29.4 (8-20); Blood Urea Nitrogen 20 mg/dL (6-24); CO2 Carbon Dioxide 19 mmol/L (22-32); Calcium 9.4 mg/dL (8.6-10.3); Chloride 102 mmol/L (101-111); EGFR African American 161.5 (>60); EGFR Non-African American 133.5 (>60); Glucose 95 mg/dL (70-100); Sodium 129 mmol/L (135-145); Total Protein 6.9 g/dL (6.4-8.9)
[2019-09-04 13:45] LABS: Anion Gap 8 mmol/L (2-11)
[2019-09-04 13:48] LABS: ABS Basophils 0.1 10^3/ul (0-0.2); ABS Lymphocytes 1.2 10^3/ul (1.0-4.8); ABS Monocytes 0.9 10^3/ul (0-0.8); Eosinophil % 0.2 %; Lymphocyte % 8.9 %; Nucleated Red Blood Cells % 0.1
[2019-09-04] MEDS ORDERED: Piperacillin/Tazobac ADVAN(*) 3.375 GM in NS 0.9% 100 ml BAG 100 ML IVPB ONE (14:35)
[2019-09-04] MEDS: NS 0.9% 1000 ml BAG 2,000 ML IV ONE ×2 (14:49→15:40)
[2019-09-04 15:09] LABS: Urine Appearance Clear; Urine Bilirubin 1+ (Negative); Urine Blood Negative (Negative); Urine Color Amber; Urine Glucose Negative (Negative); Urine Ketones Negative (Negative); Urine Nitrite Negative (Negative); Urine Protein Negative (Negative); Urine Specific Gravity 1.021 (1.010-1.030); Urine Urobilinogen Positive (Negative)
[2019-09-04] MEDS ORDERED: Lidocaine 1% VIAL 10 MG/ML VIAL INJ ONE (15:10)
[2019-09-04] MEDS ORDERED: Ondansetron 4 mg VIAL 2 MG/ML 2 ml VIAL IV PRN (15:56)
[2019-09-04] MEDS ORDERED: NS 0.9% 1000 ml BAG 1,000 ML IV SCH (16:00)
[2019-09-04 16:08] LABS: Body Fluid Source Peritonial Fluid
[2019-09-04] MEDS: Diazepam 5 mg TAB (*) PO PRN ×2 (16:19→23:27)
[2019-09-04] MEDS: Morphine 2 MG/ML SYRINGE IV PRN ×2 (16:20→21:02)
[2019-09-04 16:55] LABS: Body Fluid Mono 87 %
[2019-09-04 17:00] LABS: Potassium Redraw 3.5 mmol/L (3.5-5.0)
[2019-09-04] MEDS ORDERED: cefTRIAXone VIAL 1,000 MG VIAL IVPB SCH (21:00)
[2019-09-04] MEDS ORDERED: cefTRIAXone(*) 2 GM ADDV.VIAL 2 GM in NS 0.9% 100 ml BAG 100 ML IVPB SCH (21:00)
[2019-09-04] MEDS ORDERED: CAPECITABINE 500 MG PO SCH (21:00)
[2019-09-04] MEDS: Megestrol 400 MG/10 ML SUSP PO SCH (21:11)
[2019-09-04] MEDS ORDERED: cefoTAXime (*) (NF) 2 GM VIAL IVPB SCH (23:00)
[2019-09-05] MEDS: Morphine 2 MG/ML SYRINGE IV PRN ×6 (01:35→22:11)
[2019-09-05 06:10] LABS: ABS Basophils 0.1 10^3/ul (0-0.2); ABS Monocytes 0.9 10^3/ul (0-0.8); Eosinophil % 0.2 %; Hematocrit 36 % (42-52); Hemoglobin 12.2 g/dL (14.0-18.0); Lymphocyte % 8.8 %; Mean Corpuscular HGB Conc 34 g/dL (31-36); Mean Corpuscular Hemoglobin 36 pg (27-31); Mean Corpuscular Volume 107 fL (80-94); Mean Platelet Volume 7.5 fL (7.4-10.4); Nucleated Red Blood Cells % 0.1; Platelet Count 244 10^3/uL (150-450); Red Blood Count 3.34 10^6 /uL (4.18-5.48); Red Cell Distribution Width 25 % (10-15); White Blood Count 11.4 10^3/uL (3.5-10.8)
[2019-09-05 06:21] LABS: BUN/Creatinine Ratio 26.3 (8-20); Calcium 8.8 mg/dL (8.6-10.3); EGFR African American 133.9 (>60); EGFR Non-African American 110.7 (>60)
[2019-09-05 06:22] LABS: Potassium 5.1 mmol/L (3.5-5.0)
[2019-09-05] MEDS: Megestrol 400 MG/10 ML SUSP PO SCH ×2 (10:32→21:27)
[2019-09-05] MEDS ORDERED: Albumin Human 25% 25 GM/100 ML BTL IV ONE (17:00)
[2019-09-05] MEDS ORDERED: Albumin Human 25% 12.5 GM/50 ML BTL IV ONE (17:50)
[2019-09-05] MEDS: Diazepam 5 mg TAB (*) PO PRN (21:27)
[2019-09-06] MEDS: Morphine 2 MG/ML SYRINGE IV PRN ×6 (02:48→19:32)
[2019-09-06 07:09] LABS: Hematocrit 37 % (42-52); Hemoglobin 12.2 g/dL (14.0-18.0); Mean Corpuscular HGB Conc 34 g/dL (31-36); Mean Corpuscular Hemoglobin 36 pg (27-31); Mean Corpuscular Volume 108 fL (80-94); Mean Platelet Volume 7.7 fL (7.4-10.4); Platelet Count 250 10^3/uL (150-450); Red Blood Count 3.38 10^6 /uL (4.18-5.48); Red Cell Distribution Width 25 % (10-15); White Blood Count 12.7 10^3/uL (3.5-10.8)
[2019-09-06 07:13] LABS: Albumin/Globulin Ratio 0.9 (1-3); Calcium 9.2 mg/dL (8.6-10.3); EGFR African American 158.8 (>60); EGFR Non-African American 131.3 (>60); Globulin 3.4 g/dL (2-4); Potassium 5.1 mmol/L (3.5-5.0); Total Bilirubin 3.2 mg/dL (0.2-1.0); Total Protein 6.4 g/dL (6.4-8.9)
[2019-09-06 07:50] LABS: ABS Basophils 0.1 10^3/ul (0-0.2); ABS Eosinophils 0.1 10^3/ul (0-0.6); ABS Lymphocytes 1.1 10^3/ul (1.0-4.8); ABS Monocytes 1.1 10^3/ul (0-0.8); Eosinophil % 0.4 %; Lymphocyte % 8.9 %; Microcytosis 2+
[2019-09-06] MEDS: Megestrol 400 MG/10 ML SUSP PO SCH ×2 (09:04→22:12)
[2019-09-06 13:24] LABS: BUN/Creatinine Ratio 31.4 (8-20); Calcium 9.4 mg/dL (8.6-10.3); EGFR African American 156.2 (>60); EGFR Non-African American 129.1 (>60)
[2019-09-07] MEDS: Morphine 2 MG/ML SYRINGE IV PRN ×7 (03:28→23:14)
[2019-09-07 06:28] LABS: ABS Eosinophils 0.1 10^3/ul (0-0.6); ABS Lymphocytes 1.2 10^3/ul (1.0-4.8); ABS Monocytes 1.2 10^3/ul (0-0.8); Eosinophil % 0.5 %; Hematocrit 37 % (42-52); Hemoglobin 12.5 g/dL (14.0-18.0); Lymphocyte % 9.2 %; Mean Corpuscular HGB Conc 34 g/dL (31-36); Mean Corpuscular Hemoglobin 37 pg (27-31); Mean Corpuscular Volume 108 fL (80-94); Mean Platelet Volume 7.7 fL (7.4-10.4); Nucleated Red Blood Cells % 0.1; Platelet Count 272 10^3/uL (150-450); Red Blood Count 3.42 10^6 /uL (4.18-5.48); Red Cell Distribution Width 25 % (10-15); White Blood Count 13.3 10^3/uL (3.5-10.8)
[2019-09-07 06:38] LABS: Albumin 2.9 g/dL (3.2-5.2); Albumin/Globulin Ratio 0.8 (1-3); BUN/Creatinine Ratio 30.4 (8-20); Calcium 9.1 mg/dL (8.6-10.3); EGFR African American 135.9 (>60); EGFR Non-African American 112.3 (>60); Globulin 3.6 g/dL (2-4); Magnesium 1.9 mg/dL (1.9-2.7); Total Bilirubin 3.1 mg/dL (0.2-1.0); Total Protein 6.5 g/dL (6.4-8.9)
[2019-09-07 06:43] LABS: Potassium 5.1 mmol/L (3.5-5.0)
[2019-09-07] MEDS: Megestrol 400 MG/10 ML SUSP PO SCH ×2 (12:48→20:39)
[2019-09-07 15:45] LABS: Fluid Type, Albumin PERITONEAL
[2019-09-08] MEDS: Morphine 2 MG/ML SYRINGE IV PRN ×7 (03:21→21:51)
[2019-09-08 06:18] LABS: ABS Basophils 0.1 10^3/ul (0-0.2); ABS Lymphocytes 1.1 10^3/ul (1.0-4.8); ABS Monocytes 1.3 10^3/ul (0-0.8); Eosinophil % 0.4 %; Hematocrit 38 % (42-52); Hemoglobin 12.8 g/dL (14.0-18.0); Lymphocyte % 8.2 %; Mean Corpuscular HGB Conc 34 g/dL (31-36); Mean Corpuscular Hemoglobin 37 pg (27-31); Mean Corpuscular Volume 108 fL (80-94); Mean Platelet Volume 7.9 fL (7.4-10.4); Nucleated Red Blood Cells % 0.1; Platelet Count 292 10^3/uL (150-450); Red Blood Count 3.49 10^6 /uL (4.18-5.48); Red Cell Distribution Width 25 % (10-15); White Blood Count 12.8 10^3/uL (3.5-10.8)
[2019-09-08 06:31] LABS: Albumin 2.9 g/dL (3.2-5.2); Albumin/Globulin Ratio 0.8 (1-3); BUN/Creatinine Ratio 35.6 (8-20); Calcium 9.2 mg/dL (8.6-10.3); EGFR African American 121.5 (>60); EGFR Non-African American 100.4 (>60); Globulin 3.8 g/dL (2-4); Total Bilirubin 3.6 mg/dL (0.2-1.0); Total Protein 6.7 g/dL (6.4-8.9)
[2019-09-08] MEDS: Megestrol 400 MG/10 ML SUSP PO SCH ×2 (09:15→21:13)
[2019-09-08 15:37] LABS: INR 1.57 (0.82-1.09)
[2019-09-09] MEDS ORDERED: ceFAZolin 1 GM in Dextrose (*) 1 GM/50 ML Duplex BAG ONE (12:45)
[2019-09-09] MEDS ORDERED: ceFAZolin 1 GM* X ONE DOSE (AddVan) IVPB ×2 (12:45→19:00)
[2019-09-09] MEDS ORDERED: fentaNYL 100 mcg/2 ml 50 MCG/ML VIAL ONE (13:26)
[2019-09-09] MEDS ORDERED: Midazolam 2 mg/2 ml VIAL 1 mg/ml 2 ml VIAL (2 mg) ONE (13:26)
[2019-09-09] MEDS: Megestrol 400 MG/10 ML SUSP PO SCH ×2 (19:05→23:30)
[2019-09-09] MEDS: Morphine 2 MG/ML SYRINGE IV PRN (20:50)
[2019-09-10 00:36] LABS: Potassium 5.5 mmol/L (3.5-5.0)
[2019-09-10 00:37] LABS: Albumin 2.9 g/dL (3.2-5.2); Albumin/Globulin Ratio 0.7 (1-3); BUN/Creatinine Ratio 34.5 (8-20); EGFR African American 92.7 (>60); EGFR Non-African American 76.6 (>60); Globulin 4.1 g/dL (2-4); Total Bilirubin 5.2 mg/dL (0.2-1.0)
[2019-09-10 00:38] LABS: Calcium 9.6 mg/dL (8.6-10.3); White Blood Count 14.1 10^3/uL (3.5-10.8)
[2019-09-10 00:39] LABS: Hematocrit 37 % (42-52); Hemoglobin 12.9 g/dL (14.0-18.0); Mean Corpuscular Hemoglobin 37 pg (27-31); Mean Corpuscular Volume 109 fL (80-94); Red Blood Count 3.44 10^6 /uL (4.18-5.48)
[2019-09-10 00:40] LABS: Mean Corpuscular HGB Conc 35 g/dL (31-36)
[2019-09-10 00:41] LABS: ABS Basophils 0.1 10^3/ul (0-0.2); ABS Lymphocytes 0.7 10^3/ul (1.0-4.8); ABS Monocytes 1.8 10^3/ul (0-0.8); Mean Platelet Volume 8.5 fL (7.4-10.4); Platelet Count 256 10^3/uL (150-450); Red Cell Distribution Width 25 % (10-15)
[2019-09-10 00:42] LABS: Lymphocyte % 5.1 %; Nucleated Red Blood Cells % 0.1
[2019-09-10] MEDS: Morphine 2 MG/ML SYRINGE IV PRN ×3 (01:56→12:07)
[2019-09-10 07:39] VITALS: BP 159/54
[2019-09-10] MEDS ORDERED: LORazepam 2 mg VIAL 1 ml IV PUSH PRN (09:02)
[2019-09-10] MEDS ORDERED: Lorazepam PYXIS KEY PRN (09:02)
[2019-09-10] MEDS: Megestrol 400 MG/10 ML SUSP PO SCH (09:30)
[2019-09-10] MEDS ORDERED: LORazepam 0.5 mg TAB (*) PO PRN (12:16)
[2019-09-10] MEDS: Morphine ORAL CONCENTRATE 5 MG/0.25 ML ORAL.SYRIN SL PRN ×4 (12:40→17:15)
[2019-09-10] MEDS: LORazepam 1 mg TAB (*) PO PRN (20:17)
[2019-09-11] MEDS: Morphine ORAL CONCENTRATE 5 MG/0.25 ML ORAL.SYRIN SL PRN ×3 (02:45→05:22)
[2019-09-11] MEDS: LORazepam 1 mg TAB (*) PO PRN (03:25)
== END 2019-09-11 06:50 | disposition expired | DRG 710 ==
LOC: ED 11:58 → MEDTELE 15:38 → SSU 22:27
PROVIDERS: ADMIT Nurse Practitioner Acute Care; ATTEND Internal Medicine